=== PATIENT | male | born 1960 | race Two or more races ===

== ENCOUNTER 2016-11-27 16:15 | Outpatient (CLI) | payer MEDICAID ==
--- NOTE | 2016-11-30 10:27 | XRAY Report ---
THREE-VIEW LEFT KNEE: 11/28/2016 CLINICAL INDICATION: Pain. FINDINGS: AP, lateral, sunrise views of the left knee demonstrate mild osteoarthritis. There is no evidence of fracture or dislocation. No effusion is present. IMPRESSION: MILD OSTEOARTHRITIS. JOB #: [id number] EXT JOB #:
== END 2016-11-27 16:25 ==
LOC: DI.N 16:15
PROVIDERS: ATTEND Family Medicine
DX: M17.12 Unilateral primary osteoarthritis, left knee (principal)